=== PATIENT | male | born 1985 | race Caucasian/White ===

== ENCOUNTER → 2017-02-25 | Outpatient (CLI) | payer MEDICARE, MEDICAID ==
[~2017-02-25] MED LIST: AUGMENTIN200 MG/5 M PO; BIAXIN250 MG/51 PO; CLARITIN10 MG PO; KEFLEX500 MG PO; ZITHROMAX Z PA250 MG PO; Zithromax200 MG/5 M PO
[2017-02-25 13:25] LABS: BASO % 0.5 % (0.0-1.0); EOS # 0.1 10*3/uL (0.0-0.4); EOS % 0.8 % (1.0-4.0); HEMOGLOBIN 15.8 g/dl (14.0-18.0); LYMPH # 1.8 10*3/uL (1.3-4.4); LYMPH % 27.7 % (27.0-41.0); MEAN CELL VOLUME 85.2 fl (80.0-94.0); MEAN CORPUSCULAR HGB 29.3 pg (27.0-31.0); MEAN CORPUSCULAR HGB CONC 34.3 g/dl (33.0-37.0); MEAN PLATELET VOLUME 10.2 fl (9.6-12.3); MONO # 0.4 10*3/uL (0.1-1.0); MONO % 5.4 % (3.0-9.0); NEUT # 4.2 10*3/uL (2.3-7.9); NEUT % 65.4 % (47.0-73.0); PLATELET COUNT AUTOMATED 270 10*3/uL (130-400); RED CELL DISTRI WIDTH 12.5 % (0-14.5); WHITE BLOOD COUNT 6.4 10*3/uL (4.8-10.8)
[2017-02-25 13:58] LABS: ALBUMIN 4.7 gm/dl (3.1-4.5); ALKALINE PHOSPHATASE 99 U/L (45-117); BILIRUBIN, TOTAL 0.8 mg/dl (0.2-1.0); BUN 9 mg/dl (7-24); CARBON DIOXIDE 29 mmol/L (21-32); CHLORIDE 106 mmol/L (98-107); EST GLOM FILT AFRICAN AMERICAN > 60 ml/min; GLUCOSE 85 mg/dL (65-99); LDH 157 U/L (87-241); POTASSIUM 4.8 mmol/L (3.5-5.1); SGOT/AST 14 IU/L (3-35); SGPT/ALT 22 U/L (12-78); SODIUM 146 mmol/L (136-145); TOTAL PROTEIN 8.2 gm/dL (6.4-8.2)
[2017-02-25 14:17] LABS: BETA-HCG, TUMOR MARKER < 1.0 mIU/mL (<1)
== END | disposition home or self-care (01) ==
LOC: LAB 12:05 → US 12:30
PROVIDERS: Urology
DX: N43.3 Hydrocele, unspecified (principal); N50.3 Cyst of epididymis; N32.89 Other specified disorders of bladder

== ENCOUNTER 2017-09-17 16:48 | Emergency (ER) | payer OTHER, MEDICARE, MEDICAID ==
[~2017-09-17] VITALS: Ht 177.8 cm; Wt 49.9 kg
[2017-09-17 17:35] VITALS: BP 108/57
== END 2017-09-18 09:39 | disposition home or self-care (01) ==
LOC: ED 16:48
DX: S16.1XXA Strain of muscle, fascia and tendon at neck level, initial encounter (principal); Z88.1 Allergy status to other antibiotic agents; Z88.8 Allergy status to other drugs, medicaments and biological substances; Z91.018 Allergy to other foods; Z79.899 Other long term (current) drug therapy; V73.6XXA Passenger on bus injured in collision with car, pick-up truck or van in traffic accident, initial encounter; Y93.89 Activity, other specified; Y92.89 Other specified places as the place of occurrence of the external cause; Y99.8 Other external cause status

== ENCOUNTER → 2017-12-14 | Outpatient (CLI) | payer MEDICARE, MEDICAID ==
[2017-12-14 12:01] LABS: BASO % 0.2 % (0.0-1.0); EOS % 0.8 % (1.0-4.0); HEMOGLOBIN 16.1 g/dl (14.0-18.0); LYMPH # 1.6 10*3/uL (1.3-4.4); LYMPH % 31.9 % (27.0-41.0); MEAN CELL VOLUME 83.9 fl (80.0-94.0); MEAN CORPUSCULAR HGB 29.4 pg (27.0-31.0); MEAN PLATELET VOLUME 9.8 fl (9.6-12.3); MONO # 0.3 10*3/uL (0.1-1.0); MONO % 5.6 % (3.0-9.0); NEUT # 3.1 10*3/uL (2.3-7.9); NEUT % 61.3 % (47.0-73.0); PLATELET COUNT AUTOMATED 288 10*3/uL (130-400); RED BLOOD COUNT 5.48 10*6/uL (4.50-5.90); RED CELL DISTRI WIDTH 12.5 % (0-14.5)
[2017-12-14 12:20] LABS: ACT PARTIAL THROMBO TIME 26.7 SECONDS (20.8-31.5); INTERNATIONAL NORM RATIO 1.1 (2.0-3.5)
[2017-12-14 12:23] LABS: ALBUMIN 4.3 gm/dl (3.1-4.5); ALKALINE PHOSPHATASE 99 U/L (45-117); BUN 8 mg/dl (7-24); CHLORIDE 106 mmol/L (98-107); CREATININE 0.87 mg/dL (0.70-1.30); POTASSIUM 4.9 mmol/L (3.5-5.1); SGOT/AST 13 IU/L (3-35); SGPT/ALT 24 U/L (12-78); SODIUM 143 mmol/L (136-145); TOTAL PROTEIN 8.2 gm/dL (6.4-8.2)
== END | disposition home or self-care (01) ==
LOC: LAB 11:20
PROVIDERS: Nurse Practitioner Family
DX: Z00.8 Encounter for other general examination (principal); J06.9 Acute upper respiratory infection, unspecified

== ENCOUNTER → 2018-01-27 | Outpatient (CLI) | payer MEDICARE, MEDICAID ==
[2018-01-27 09:59] LABS: BASO % 0.5 % (0.0-1.0); EOS # 0.1 10*3/uL (0.0-0.4); EOS % 0.7 % (1.0-4.0); HEMATOCRIT 47.5 % (42.0-52.0); HEMOGLOBIN 16.3 g/dl (14.0-18.0); LYMPH % 22.2 % (27.0-41.0); MEAN CELL VOLUME 85.3 fl (80.0-94.0); MEAN CORPUSCULAR HGB 29.3 pg (27.0-31.0); MEAN CORPUSCULAR HGB CONC 34.3 g/dl (33.0-37.0); MEAN PLATELET VOLUME 9.7 fl (9.6-12.3); MONO # 0.5 10*3/uL (0.1-1.0); MONO % 5.1 % (3.0-9.0); NEUT # 6.3 10*3/uL (2.3-7.9); NEUT % 71.2 % (47.0-73.0); PLATELET COUNT AUTOMATED 366 10*3/uL (130-400); RED BLOOD COUNT 5.57 10*6/uL (4.50-5.90); RED CELL DISTRI WIDTH 12.5 % (0-14.5); WHITE BLOOD COUNT 8.8 10*3/uL (4.8-10.8)
[2018-01-27 10:20] LABS: ALBUMIN 4.5 gm/dl (3.1-4.5); ALKALINE PHOSPHATASE 113 U/L (45-117); BUN 8 mg/dl (7-24); CHLORIDE 104 mmol/L (98-107); CREATININE 0.77 mg/dL (0.70-1.30); POTASSIUM 4.8 mmol/L (3.5-5.1); SGOT/AST 15 IU/L (3-35); SGPT/ALT 22 U/L (12-78); SODIUM 140 mmol/L (136-145); TOTAL PROTEIN 8.1 gm/dL (6.4-8.2)
== END | disposition home or self-care (01) ==
LOC: LAB 09:36
PROVIDERS: Internal Medicine
DX: G80.0 Spastic quadriplegic cerebral palsy (principal); R13.12 Dysphagia, oropharyngeal phase

== ENCOUNTER → 2018-02-03 | Outpatient (CLI) | payer MEDICARE, MEDICAID ==
--- NOTE | ~2018-02-03 | SLPIE ---
[place], [place] SMART GRID ENGINEER INITIAL EVALUATION NAME: STELLA FUNG UNIT #: [id number] ROOM: DOCTOR: MICHAEL CASTELLANOS DO Speech Language Pathology Initial Evaluation Page 1 1 of Patient Name: STELLA FUNG Date: 02/03/2018 10:53 AM : 1985 SOC Date: 02/03/2018 [facility]: [facility] Provider #: [id number] Treating Clinician: MAR Robbins-SMART GRID ENGINEER Referring Physician: MICHAEL CASTELLANOS Patient Information Address: [address] [place] [address] Physician: MICHAEL CASTELLANOS Physician #: City, [facility], Zip: [place], [place] [address] Occupation: Unknown # of Approved Visits: 0 Gender: Male Medicaid #: [id number] [employer] Cutting Machine Operator: ERICKSON FUNG Medicare #: [id number] Rehabilitation Information / History Onset Date Code Description Primary Diagnosis: 02/03/2018 A0000 NO DIAGNOSIS SENT TO THE [facility] Subjective Comments: Initial evaluation created to initiate the electronic medical record. Please see [email or web address] for details. Rehabilitation Information / History Clinical Findings Functional Goals Functional Limitation Reporting Swallowing G8996 - Swallowing functional limitation, current status at therapy episode outset and at reporting intervals Current Status: CL - At least 60 percent but less than 80 percent impaired, limited or restricted G8997 - Swallowing functional limitation, projected goal status, at therapy episode outset, at reporting intervals, and at discharge or to end reporting Goal Status: CL - At least 60 percent but less than 80 percent impaired, limited or restricted G8998 - Swallowing functional limitation, discharge status, at discharge from therapy or to end reporting Discharge Status: CL - At least 60 percent but less than 80 percent impaired, limited or restricted 02/03/2018 10:54:45 AM MAR Robbins-SANDEEP Date/Time [place], [place] SMART GRID ENGINEER INITIAL EVALUATION NAME: STELLA FUNG UNIT #: [id number] ROOM: DOCTOR: MICHAEL CASTELLANOS DO [facility] License #: [id number] CM:SLPIE [id number] [facility]
--- NOTE | ~2018-02-03 | SLPPOC ---
[place], [place] LICENSED NUCLEAR OPERATOR PLAN OF CARE NAME: STELLA FUNG UNIT #: [id number] ROOM: DOCTOR: MICHAEL CASTELLANOS DO Speech Language Pathology Plan of Care Page 1 1 (Initial Evaluation) of Patient Name: STELLA FUNG Date: 02/03/2018 10:53 AM : 1985 SOC Date: 02/03/2018 Provider: [facility] Provider #: [id number] Treating Clinician: MAR Robbins-LICENSED NUCLEAR OPERATOR Referring Physician: MICHAEL CASTELLANOS Medicare #: [id number] Visits From SOC: Medicaid #: [id number] Onset Date Description Code Primary Diagnosis: 02/03/2018 A0000 NO DIAGNOSIS SENT TO THE [facility] Subjective Comments: Initial evaluation created to initiate the electronic medical record. Please see [employer] for details. Initial Level Goals Functional Limitation Reporting Swallowing G8996 - Swallowing functional limitation, current status at therapy episode outset and at reporting intervals Current Status: CL - At least 60 percent but less than 80 percent impaired, limited or restricted G8997 - Swallowing functional limitation, projected goal status, at therapy episode outset, at reporting intervals, and at discharge or to end reporting Goal Status: CL - At least 60 percent but less than 80 percent impaired, limited or restricted G8998 - Swallowing functional limitation, discharge status, at discharge from therapy or to end reporting Discharge Status: CL - At least 60 percent but less than 80 percent impaired, limited or restricted 02/03/2018 10:54:45 AM MICHAEL CASTELLANOS Date/Time CHANG Robbins Date I certify the need for these services furnished under this plan of treatment while under my care. State License #: [id number] CM:SLPPOC [id number] 1057 [facility] TH[facility]
--- NOTE | ~2018-02-03 | SLPPN ---
[place], [place] SADDLE STITCH OPERATOR PROGRESS NOTE NAME: STELLA FUNG UNIT #: [id number] ROOM: DOCTOR: MICHAEL CASTELLANOS DO Speech Language Pathology Treatment Note Page 1 1 of Patient Name: STELLA FUNG Date: 02/03/2018 10:54 AM : 1985 SOC Date: 02/03/2018 Provider: [facility] Provider #: [id number] Treating Clinician: MAR Robbins-SANDEEP Referring Physician: MICHAEL CASTELLANOS Onset Date Description Code Primary Diagnosis: 02/03/2018 A0000 NO DIAGNOSIS SENT TO THE [facility] Time In: 09:30 AM Time Out: 10:30 AM SADDLE STITCH OPERATOR Interventions and CPT Codes Consisted of: CPT Code Modifiers Minutes Units MOTION FLUOROSCOPY/SWALLOW 84200 60 1 Total Minutes: 60 Total Timed Minutes: 0 Total Untimed Minutes: 60 Total Units: 1 Total Timed Units: 0 Total Untimed Units: 1 02/03/2018 10:55:30 AM MAR Robbins-SANDEEP Date/Time State License #: [id number] CM:NICHOLAS 1057 1057 IS THERAPY [facility]
--- NOTE | ~2018-02-03 | PROC NOTE ---
[place], [place] PROCEDURE NOTE NAME: STELLA FUNG [facility] #: [id number] UNIT #: [id number] ROOM: DOCTOR: LUIS MIGUEL BRAXTONANN BIRTHDATE: [birth year] DOS: 02/03/2018 MODIFIED BARIUM SWALLOW ORDERING PHYSICIAN: Dr. Vogt. RADIOLOGIST: Dr. Brown. BACKGROUND INFORMATION: The patient, a 32-year-old male who was seen for modified barium swallow. This test was ordered to determine safety with diet. This patient currently receives a pureed diet and honey-thick liquids. This patient is diagnosed with cerebral palsy. The patient's mom provided case history information. She reported that he suffered from a recent mouth infection. She stated that he is currently back to premorbid level; however, during the infection, he was having some difficulty with swallowing. For the assessment, the patient was seated in a wheelchair. He was fed by his mother to improve cooperation. Oral peripheral examination revealed presence of several natural teeth. The patient presented in a consistent open mouth position. Lingual and labial skills were poor in strength, range of motion, and coordination. The patient was not able to volitionally cough or swallow. He was intelligible with simple yes/no responses only. METHODS AND MATERIALS USED FOR THE EXAM: The patient was positioned in the lateral plane. As previously mentioned, he was seated in his wheelchair. The patient had difficulty maintaining a neutral head position. This is typical of his positioning with meals. He was assessed with applesauce mixed with barium presented in half teaspoon amounts and honey-thick barium taken by cup. These were initially attempted by the clinician. However, due to limited cooperation, his mother was requested to feed him and this was helpful as he was more cooperative. ORAL PHASE: The patient was unable to maintain labial seal around cup or spoon, anterior loss was observed. Bolus formation and transit were poor. Material moved through his mouth by gravity. PHARYNGEAL PHASE: The patient's pharyngeal swallow was slow and weak in general. Hyolaryngeal elevation was weak. Residue occurred in the pharyngeal recesses post-swallow. This did eventually clear with subsequent swallows. No penetration or aspiration occurred during this study; however, this patient presents at high risk for aspiration due to his condition. ESOPHAGEAL PHASE: This phase of the swallow was not formally assessed during this exam. IMPRESSIONS AND RECOMMENDATIONS: Based upon assessment results, this 32-year-old patient presents with a severe oropharyngeal dysphagia. It is recommended that he remain on pureed diet with honey-thick liquids with use of safe swallow strategies such as upright positioning for meals, trying to maintain head in neutral position, small bites and sips and alternating food and honey thick liquids. Also, recommend the patient be monitored for signs and [place], [place] PROCEDURE NOTE NAME: STELLA FUNG UNIT #: [id number] ROOM: DOCTOR: GALINDO BRAXTON BIRTHDATE: [birth year] symptoms of aspiration. Results and recommendations were shared with his mom and a written copy was provided for education of caregivers as the patient attends a workshop daily and eats there as well. Mom verbalized understanding of information provided. Thank you very much for this referral. Should you have any questions regarding this patient, please contact the speech pathologist at [phone]. GLAINDO BRAXTON CM:PROCNOTE:PROCEDURE NOTE [id number] GALINDO BRAXTON
== END | disposition home or self-care (01) ==
LOC: RAD/SH 09:30
DX: R13.12 Dysphagia, oropharyngeal phase (principal)

== ENCOUNTER 2018-04-02 00:05 | Inpatient (IN) | payer MEDICARE, MEDICAID ==
[2018-04-02] VITALS (9 sets, daily range): BP systolic 135–171; BP diastolic 72–90
[~2018-04-02] VITALS: Ht 170.1 cm; Wt 44.1 kg
--- NOTE | ~2018-04-02 | PROC NOTE ---
[place], [place] PROCEDURE NOTE [id number] UNIT #: [id number] ROOM: 421 DOCTOR: LUIS MIGUEL LARA BIRTHDATE: [birth year] DOS: REFERRING PHYSICIAN: Dr. Chan. RADIOLOGIST: Dr. Hang Drake. HISTORY OF PRESENT ILLNESS: The patient is a 33-year-old male admitted to [facility] with increased sputum production. The patient diagnosed with pneumonia and sepsis. Significant previous medical history includes cerebral palsy and asthma. The patient also recently underwent dental surgery. The patient is previously known to DRESSING MACHINE OPERATOR service. An MBSS was completed on 02/03/2018. Pureed and honey thickened liquids were recommended following. GENERAL COMMENTS: Patient was accompanied by his mother who provided all background information. She reported that he was tolerating a pureed diet with honey thickened liquids prior to admission. She noted that she occasionally provides him with nectar thickened liquids and even thin liquids sparingly. She denied recent coughing/choking with any consistency. She reported occasional nasal regurgitation if the patient eats/drinks too quickly (approximately once per month). MODIFIED BARIUM SWALLOW METHODS: The patient was positioned upright in his wheelchair during the exam. The patient's mother fed him throughout. This exam was viewed in the lateral plane. The patient tolerated the following barium impregnated consistencies, teaspoons of pureed x3, teaspoons of honey thickened liquids x3 and teaspoon of nectar thickened liquid x1. ORAL PHASE: The patient with no lip closure resulting in mild to moderate amounts of anterior loss. The patient did not manipulate bolus in oral cavity rather all boluses fell passively to the pharynx. Moderate oral residue noted which reduced anteriorly and posteriorly post-swallow. PHARYNGEAL PHASE: Initiation of the swallow response was moderately delayed with contrast reaching the vallecula before initiation of the swallow. Bolus driving pressure was reduced due to lack of oral propulsion and reduced pharyngeal constriction. HLE was reduced; however, epiglottic closure was adequate for airway protection. No penetration or aspiration was observed with any consistency. Base of tongue to posterior pharyngeal wall contact was severely reduced with moderate to severe amounts of residue maintained in the vallecula and piriform sinuses. Patient independently swallowed multiple times (4-5 per bite/sip). This reduced pharyngeal residue significantly. Findings were consistent across pureed honey and nectar thickened liquids. UES: Unremarkable. IMPRESSION: The patient presents with severe oropharyngeal dysphagia consistent with findings of previous MBS (02/03/2018); however, the patient maintained adequate airway protection for pureed honey thickened liquids and nectar thickened liquids with no penetration/aspiration occurring. Therefore, he is appropriate for diet of puree and nectar thickened liquids. The patient is at [place], [place] PROCEDURE NOTE NAME: STELLA FUNG UNIT #: [id number] ROOM: 421 DOCTOR: LUIS MIGEUL LARA BIRTHDATE: [birth year] high risk for aspiration given his dysphagia and cerebral palsy. However, his mother is very capable in feeding him and strictly adheres to safe swallowing strategies. RECOMMENDATIONS: 1. Initiate pureed diet with nectar thickened liquids. If patient is showing signs or symptoms of difficulty with nectar, moved to honey-thickened liquids. 2. Aspiration precautions, fully upright with head forward for all p.o. All bites/sips fed via teaspoon, very slow rate of feeding, small bites/sips, alternate bites of puree and thickened liquid; oral care prior to p.o. PLAN OF CARE: DRESSING MACHINE OPERATOR service will follow the patient inhouse to ensure tolerance to recommended diet. Findings and recommendations were discussed with the patient's mother and RN. Thank you for consulting. Please contact the DRESSING MACHINE OPERATOR Department at [phone] with any questions/concerns. Luis Miguel Hurst CM:PROCNOTE:PROCEDURE NOTE [id number] LUIS MIGUEL LARA
--- NOTE | ~2018-04-02 | PR ---
[place], [place] PROGRESS NOTE NAME: STELLA FUNG [facility] #: [id number] UNIT #: [id number] ROOM: 421 DOCTOR: ALLYSSA STRAUSS MD,LAMBERTO BIRTHDATE: [birth year] DOS: 04/04/2018 PULMONARY PROGRESS NOTE SUBJECTIVE: The patient has been noted comfortable, resting on the chair this morning, underwent modified barium swallow, completed. The patient noted nonverbal with history of cerebral palsy. The mom was present with the patient. PHYSICAL EXAMINATION: VITAL SIGNS: Vital signs of the patient normal temperature, respiratory rate of 18-20, heart rate 82, and blood pressure 138/80. Pulse oxygen saturation of the patient recorded on room air 98% saturation. HEENT: On examination, no new change. CARDIOVASCULAR: S1, S2 audible. LUNGS: Without any wheezing or crackles. ABDOMEN: Soft and nontender. EXTREMITIES: Without any acute edema. Chronic changes noted. Contracture with history of cerebral palsy. IMPRESSION: 1. Acute aspiration pneumonia, which has been treated with the antibiotics. The patient seems to be responding to treatment. 2. History of cerebral palsy. PLAN OF MANAGEMENT: The patient could be considered from discharge today on oral antibiotics. Monitor results of the modified barium swallow study to make any adjustment in the dietary restrictions. In the meantime, continue other supportive therapy, plan of management, and care plan. LAMBERTO SPIVEY MD CM:PNTRANS [id number] LAMBERTO STRAUSS MD 04/05/18 0027 interface
--- NOTE | ~2018-04-02 | CON ---
[place], [place] REPORT OF CONSULTATION NAME: STELLA FUNG [facility] #: [id number] UNIT #: [id number] ROOM: 421 DOCTOR: ALLYSSA STRAUSS MD,LAMBERTO BIRTHDATE: [birth year] DOS: 04/03/2018 PULMONARY CONSULTATION, EVALUATION AND MANAGEMENT CONSULTATION REQUESTED BY: Hospitalist. REASON FOR CONSULTATION: To assess the patient for acute pneumonia. The history could not be obtained from the patient because of history of cerebral palsy. All the history given to me by the mother of this patient's present at bedside. HISTORY OF PRESENT ILLNESS: This is a 33-year-old the patient with history of cerebral palsy since . He was taken care of at home by the mother. The patient has been noted with symptoms of chest congestion, coughing with thick green sputum expectoration at time. Symptoms have been noted worsened in the past couple of weeks. He has been given bronchodilators and the Claritin without any relief of symptoms. The patient was noted with increased shortness of breath, diaphoresis as well as his toes were turning purple per mother. He was brought to the hospital for further assessment. The patient had a chest x-ray done and subsequently, CT scan of the chest was done, which were described as possibility of acute infection, leukocytosis was also noted. At this time of assessment, the patient has been noted comfortable at this time without any acute distress. The patient does not have any visual connection does not follow vocal commands. REVIEW OF SYSTEMS: Could not be completed because of the patient's inability to provide me history because of current cerebral palsy. PAST MEDICAL HISTORY: 1. Noted with a history of recurrent recent infection involving the teeth and the bone in the jaw, they were removed in moderate size and ____. 2. Longstanding cerebral palsy. 3. Diagnosis of bronchial asthma. 4. 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 The patient remained on mechanical ventilator per mother upon for a few weeks. PAST SURGICAL HISTORY: The patient reported as surgery of the eye and the right hip. Partial teeth extraction and lower jaw. SOCIAL HISTORY: The patient stays at home. There was no history of alcohol use, illicit drug use. Tobacco use reported. FAMILY HISTORY: Father is living, a 55-year-old with history of hypertension, hyperlipidemia, diabetes, and coronary artery disease. Mother is living 52-year-old with history of hyperlipidemia and essential hypertension. HOME MEDICATIONS: Noted. Claritin and use of the breathing treatment, most likely DuoNeb q.i.d. [place], [place] REPORT OF CONSULTATION NAME: STELLA FUNG UNIT #: [id number] ROOM: [facility] DOCTOR: LAMBERTO GONZÁLES MD BIRTHDATE: [birth year] DRUG ALLERGIES: REPORTED : 1. AUGMENTIN. 2. LEVAQUIN. PHYSICAL EXAMINATION: GENERAL: This is 33-year-old male, who has been noted currently awake and alert without any distress. Height was recorded as 5 feet 7 inches, weight of 97 pounds, BMI 15. VITAL SIGNS: Temperature noted at 102 degrees Fahrenheit on admission and currently noted afebrile in the last 12 hours, respiratory rate range between 18-24, heart rate 94-101, blood pressure 146/76-141/81. Pulse oxygen saturation on room air was 98% saturation. HEENT: Examination shows head was atraumatic, high-arched palate. Oral mucosa was noted as mildly dry, but there were no lesions or rashes visible. NECK: Supple. CARDIOVASCULAR: S1, S2 is audible. LUNGS: The patient was noted without any wheezing or crackles at this time of assessment. ABDOMEN: Soft. Bowel sounds present. EXTREMITIES: Cerebral palsy. Contracture at the level of the wrist and in the lower legs. SKIN: Visible skin no lesions or rashes. CENTRAL NERVOUS SYSTEM: Cerebral palsy findings were noted. LABORATORY DATA: On admission, lactic acid 7.9. Follow up 2.0. PT/PTT noted as normal. CMP on 04/02/2018, glucose 152. Sodium 148, potassium 5.6, chloride 110. CMP on 04/02/2018, noted glucose 125, BUN and creatinine were normal, remaining CMP grossly normal. CBC repeated on admission, WBC count 22.8, hemoglobin and hematocrit normal, platelet count normal, 95% segmented neutrophils. CBC on 04/03/2018, hemoglobin 13.8, WBC count were completely normal. The platelets were noted normal. CMP this morning, BUN normal, creatinine was normal. Remaining CMP normal. ESR was 9.0. Review of the radiology data, the chest x-ray that was done, 1 view does not show any acute abnormality on 04/02/2018. CT scan of the abdomen and pelvis was completed in the Emergency Room on 04/02/2018, radicular nodular density was reported in the lower portion of the thorax images that were completed of the right lower lobe with ____. CT scan of the maxillofacial sinus without contrast was done without any acute abnormality. CT scan of chest that was done on 04/02/2018 was reviewed personally and independently. Mediastinal windows does not show any acute abnormalities. The lung parenchymal window reviewed shows clear left lung. There were no pulmonary abnormalities. History of ground-glass opacity noted in the right upper lobe, right middle lobe as well as a right lower lobe. The patient noted significant motion artifact, infiltration and ground-glass opacity noted much more pronounced in the right lower lung, than the remaining portion of the right lung. IMPRESSION: The patient who has been admitted to the hospital with: 1. Acute sepsis related to current acute pneumonia very likely, possibility of [place], [place] REPORT OF CONSULTATION [id number] #: [id number] ROOM: 421 DOCTOR: LAMBERTO GONZÁLES MD BIRTHDATE: [birth year] aspiration pneumonia could be considered. 2. History of longstanding cerebral palsy as well. PLAN OF MANAGEMENT: Great precaution of this would be done for any aspiration. The patient with oral food intake. Continuation of current antibiotic. The patient seemed responding to treatment for the community-acquired infection aspiration with gram-positive organisms such as streptococcal pneumonia. Followed the temperature elevation, leukocytosis, and further response to current treatment, consider modified barium swallow study as well to modify the diet if necessary further in for future use to prevent the aspirations. Usual care, other supportive plan of management and care plan. Additional treatment changes will be made based on the progression of the illness. Assessment and management has been discussed with the patient and mother. LAMBERTO SPIVEY MD CM:CONSTR:REPORT OF CONSULTATION 1609 04/04/18 0046 interface
[2018-04-02 00:46] LABS: HEMATOCRIT 46.5 % (42.0-52.0); MEAN CELL VOLUME 85.6 fl (80.0-94.0); MEAN CORPUSCULAR HGB 29.5 pg (27.0-31.0); MEAN CORPUSCULAR HGB CONC 34.4 g/dl (33.0-37.0); MEAN PLATELET VOLUME 9.8 fl (9.6-12.3); PLATELET COUNT AUTOMATED 353 10*3/uL (130-400); RED BLOOD COUNT 5.43 10*6/uL (4.50-5.90); RED CELL DISTRI WIDTH 12.5 % (0-14.5); WHITE BLOOD COUNT 20.5 10*3/uL (4.8-10.8)
[2018-04-02 00:57] LABS: ACT PARTIAL THROMBO TIME 24.7 SECONDS (20.8-31.5); INTERNATIONAL NORM RATIO 1.1 (2.0-3.5)
[2018-04-02 01:01] LABS: ALBUMIN 4.7 gm/dl (3.1-4.5); ALKALINE PHOSPHATASE 107 U/L (45-117); BUN 14 mg/dl (7-24); CHLORIDE 110 mmol/L (98-107); CREATININE 1.13 mg/dL (0.70-1.30); LIPASE 59 U/L (73-393); POTASSIUM 5.6 mmol/L (3.5-5.1); SGOT/AST 21 IU/L (3-35); SGPT/ALT 29 U/L (12-78); SODIUM 148 mmol/L (136-145); TOTAL PROTEIN 8.2 gm/dL (6.4-8.2)
[2018-04-02 01:02] LABS: TROPONIN I < 0.015 ng/ml (<0.045)
[2018-04-02 01:09] LABS: PLATELET SUFFICIENCY NORMAL (NORMAL); TOTAL CELLS COUNTED 100 #CELLS
[2018-04-02 02:27] LABS: BILIRUBIN NEGATIVE (NEGATIVE); BLOOD NEGATIVE (NEGATIVE); CLARITY CLEAR (CLEAR); COLOR YELLOW (YELLOW); GLUCOSE TRACE (NEGATIVE); KETONE 1+ (NEGATIVE); LEUKO ESTERASE NEGATIVE (NEGATIVE); NITRITE NEGATIVE (NEGATIVE); UROBILINOGEN 0.2 E.U./dl (0.2-1.0)
[2018-04-02 03:43] LABS: HYALINE CAST 20-25
[2018-04-02 06:13] LABS: HEMATOCRIT 44.5 % (42.0-52.0); HEMOGLOBIN 15.1 g/dl (14.0-18.0); MEAN CELL VOLUME 84.6 fl (80.0-94.0); MEAN CORPUSCULAR HGB 28.7 pg (27.0-31.0); MEAN CORPUSCULAR HGB CONC 33.9 g/dl (33.0-37.0); MEAN PLATELET VOLUME 9.8 fl (9.6-12.3); PLATELET COUNT AUTOMATED 285 10*3/uL (130-400); RED BLOOD COUNT 5.26 10*6/uL (4.50-5.90); RED CELL DISTRI WIDTH 12.6 % (0-14.5); WHITE BLOOD COUNT 22.8 10*3/uL (4.8-10.8)
[2018-04-02 06:27] LABS: ALBUMIN 4.2 gm/dl (3.1-4.5); ALKALINE PHOSPHATASE 97 U/L (45-117); BUN 9 mg/dl (7-24); CHLORIDE 108 mmol/L (98-107); CHOLESTEROL 126 mg/dL (<200); CREATININE 0.77 mg/dL (0.70-1.30); HDL CHOLESTEROL 53 mg/dl (40-60); LDL CHOLESTEROL 66 mg/dL (9-159); PHOSPHOROUS 1.9 mg/dL (2.5-4.9); SGOT/AST 24 IU/L (3-35); SGPT/ALT 26 U/L (12-78); TOTAL PROTEIN 7.5 gm/dL (6.4-8.2); TRIGLYCERIDES 34 mg/dl (<150); VLDL CHOLESTEROL 7 mg/dL (6-40)
[2018-04-02 06:28] LABS: FREE T4 1.09 ng/dl (0.76-1.46)
[2018-04-02 06:34] LABS: SODIUM 143 mmol/L (136-145)
[2018-04-02 06:48] LABS: ATYPICAL LYMPHS 2 % (0-0); PLATELET SUFFICIENCY NORMAL (NORMAL); TOTAL CELLS COUNTED 100 #CELLS
[2018-04-02 07:53] LABS: VITAMIN D, 25-HYDROXY 10.3 ng/mL (30-100)
[2018-04-03] VITALS: BP 158/86
[2018-04-03 07:34] LABS: BASO % 0.2 % (0.0-1.0); EOS % 0.2 % (1.0-4.0); HEMOGLOBIN 13.8 g/dl (14.0-18.0); LYMPH # 1.3 10*3/uL (1.3-4.4); LYMPH % 14.8 % (27.0-41.0); MEAN CORPUSCULAR HGB 28.9 pg (27.0-31.0); MEAN CORPUSCULAR HGB CONC 33.7 g/dl (33.0-37.0); MEAN PLATELET VOLUME 10.1 fl (9.6-12.3); MONO # 0.5 10*3/uL (0.1-1.0); MONO % 5.2 % (3.0-9.0); NEUT # 7.1 10*3/uL (2.3-7.9); NEUT % 79.4 % (47.0-73.0); PLATELET COUNT AUTOMATED 212 10*3/uL (130-400); RED BLOOD COUNT 4.77 10*6/uL (4.50-5.90); RED CELL DISTRI WIDTH 12.7 % (0-14.5); WHITE BLOOD COUNT 8.9 10*3/uL (4.8-10.8)
[2018-04-03 07:37] LABS: ALBUMIN 3.5 gm/dl (3.1-4.5); ALKALINE PHOSPHATASE 78 U/L (45-117); BUN 5 mg/dl (7-24); CHLORIDE 111 mmol/L (98-107); CREATININE 0.64 mg/dL (0.70-1.30); PHOSPHOROUS 2.9 mg/dL (2.5-4.9); SGOT/AST 29 IU/L (3-35); SGPT/ALT 29 U/L (12-78); SODIUM 144 mmol/L (136-145); TOTAL PROTEIN 6.6 gm/dL (6.4-8.2)
[2018-04-03 08:00] VITALS: BP 155/71
[2018-04-03 12:00] VITALS: BP 141/81
[2018-04-03 16:00] VITALS: BP 144/87
[2018-04-03 20:00] VITALS: BP 154/92
[2018-04-04 00:09] VITALS: BP 145/82
[2018-04-04 06:41] LABS: BASO % 0.3 % (0.0-1.0); EOS # 0.1 10*3/uL (0.0-0.4); HEMOGLOBIN 13.5 g/dl (14.0-18.0); LYMPH # 1.7 10*3/uL (1.3-4.4); LYMPH % 27.7 % (27.0-41.0); MEAN CELL VOLUME 85.3 fl (80.0-94.0); MEAN CORPUSCULAR HGB 28.8 pg (27.0-31.0); MEAN CORPUSCULAR HGB CONC 33.8 g/dl (33.0-37.0); MEAN PLATELET VOLUME 10.1 fl (9.6-12.3); MONO # 0.4 10*3/uL (0.1-1.0); MONO % 6.1 % (3.0-9.0); NEUT % 64.6 % (47.0-73.0); PLATELET COUNT AUTOMATED 254 10*3/uL (130-400); RED BLOOD COUNT 4.69 10*6/uL (4.50-5.90); RED CELL DISTRI WIDTH 12.7 % (0-14.5); WHITE BLOOD COUNT 6.3 10*3/uL (4.8-10.8)
[2018-04-04 07:05] LABS: BUN 7 mg/dl (7-24); CHLORIDE 108 mmol/L (98-107); CREATININE 0.59 mg/dL (0.70-1.30); POTASSIUM 3.7 mmol/L (3.5-5.1); SODIUM 144 mmol/L (136-145)
[2018-04-04 08:00] VITALS: BP 138/80
[2018-04-04] MEDS ORDERED: DOXYCYCLINE100 M3 PO (12:48)
== END 2018-04-04 13:24 | disposition home or self-care (01) | DRG 871 ==
LOC: ED 00:05 → EDHOLD 02:21 → 4E 02:21
PROVIDERS: Internal Medicine; Nurse Practitioner Family
PROC: BD1BYZZ Fluoroscopy of Mouth/Oropharynx using Other Contrast (ICD-10-PCS; principal; 2018-04-04)
DX: A41.9 Sepsis, unspecified organism (principal); J69.0 Pneumonitis due to inhalation of food and vomit; E87.0 Hyperosmolality and hypernatremia; E87.5 Hyperkalemia; R17 Unspecified jaundice; Z68.1 Body mass index [BMI] 19.9 or less, adult; J45.909 Unspecified asthma, uncomplicated; R65.20 Severe sepsis without septic shock; R73.9 Hyperglycemia, unspecified; K59.00 Constipation, unspecified; Z88.1 Allergy status to other antibiotic agents; Z91.018 Allergy to other foods; Z82.49 Family history of ischemic heart disease and other diseases of the circulatory system; Z80.9 Family history of malignant neoplasm, unspecified; Z83.3 Family history of diabetes mellitus; Z79.899 Other long term (current) drug therapy

== ENCOUNTER 2018-07-22 11:31 | Emergency (ER) | payer MEDICARE, MEDICAID ==
[~2018-07-22] VITALS: Wt 47.6 kg
[~2018-07-22 11:31] MED LIST changes: +DOXYCYCLINE100 M3 PO
[2018-07-22 11:36] VITALS: BP 146/96
[2018-07-22 12:23] LABS: BASO % 0.3 % (0.0-1.0); HEMATOCRIT 45.4 % (42.0-52.0); HEMOGLOBIN 15.7 g/dl (14.0-18.0); LYMPH # 1.1 10*3/uL (1.3-4.4); LYMPH % 13.4 % (27.0-41.0); MEAN CORPUSCULAR HGB 29.4 pg (27.0-31.0); MEAN CORPUSCULAR HGB CONC 34.6 g/dl (33.0-37.0); MEAN PLATELET VOLUME 9.9 fl (9.6-12.3); MONO # 0.5 10*3/uL (0.1-1.0); MONO % 5.6 % (3.0-9.0); NEUT # 6.4 10*3/uL (2.3-7.9); NEUT % 80.6 % (47.0-73.0); PLATELET COUNT AUTOMATED 252 10*3/uL (130-400); RED BLOOD COUNT 5.34 10*6/uL (4.50-5.90); RED CELL DISTRI WIDTH 12.4 % (0-14.5)
[2018-07-22 12:43] LABS: ALBUMIN 4.3 gm/dl (3.1-4.5); ALKALINE PHOSPHATASE 90 U/L (45-117); BUN 7 mg/dl (7-24); CHLORIDE 107 mmol/L (98-107); CREATININE 0.72 mg/dL (0.70-1.30); POTASSIUM 4.3 mmol/L (3.5-5.1); SGOT/AST 15 IU/L (3-35); SGPT/ALT 29 U/L (12-78); SODIUM 143 mmol/L (136-145); TOTAL PROTEIN 8.3 gm/dL (6.4-8.2)
[2018-07-22 13:55] LABS: BILIRUBIN NEGATIVE (NEGATIVE); BLOOD NEGATIVE (NEGATIVE); CLARITY CLEAR (CLEAR); COLOR YELLOW (YELLOW); GLUCOSE NEGATIVE (NEGATIVE); KETONE NEGATIVE (NEGATIVE); LEUKO ESTERASE NEGATIVE (NEGATIVE); NITRITE NEGATIVE (NEGATIVE); PH 8.5 (5.0-9.0); SPECIFIC GRAVITY 1.015 (1.005-1.030); UROBILINOGEN 0.2 E.U./dl (0.2-1.0)
[2018-07-22 14:09] LABS: BACTERIA 2+; EPITHELIAL CELLS 0-2; RBC 0-2 rbc/hpf (0-2); WBC 0-2 wbc/hpf (0-5)
[2018-07-22] MEDS ORDERED: ZITHROMAX200 MG/51 PO (14:27)
== END 2018-07-22 14:40 | disposition home or self-care (01) ==
LOC: ED 11:31
PROVIDERS: Nurse Practitioner Family
DX: J06.9 Acute upper respiratory infection, unspecified (principal); J20.9 Acute bronchitis, unspecified; Z88.1 Allergy status to other antibiotic agents; Z91.018 Allergy to other foods; Z79.899 Other long term (current) drug therapy; Z98.890 Other specified postprocedural states

== ENCOUNTER 2018-12-08 16:18 | Emergency (ER) | payer MEDICARE, MEDICAID ==
[~2018-12-08] VITALS: Wt 44.9 kg
[~2018-12-08 16:18] MED LIST changes: +ZITHROMAX200 MG/51 PO
[2018-12-08 17:13] VITALS: BP 162/82
[2018-12-08 17:34] LABS: BASO % 0.3 % (0.0-1.0); HEMATOCRIT 47.8 % (42.0-52.0); HEMOGLOBIN 16.8 g/dl (14.0-18.0); LYMPH # 1.2 10*3/uL (1.3-4.4); LYMPH % 8.4 % (27.0-41.0); MEAN CELL VOLUME 84.6 fl (80.0-94.0); MEAN CORPUSCULAR HGB 29.7 pg (27.0-31.0); MEAN CORPUSCULAR HGB CONC 35.1 g/dl (33.0-37.0); MEAN PLATELET VOLUME 9.6 fl (9.6-12.3); MONO # 0.6 10*3/uL (0.1-1.0); MONO % 4.2 % (3.0-9.0); NEUT # 12.3 10*3/uL (2.3-7.9); NEUT % 86.7 % (47.0-73.0); PLATELET COUNT AUTOMATED 363 10*3/uL (130-400); RED BLOOD COUNT 5.65 10*6/uL (4.50-5.90); RED CELL DISTRI WIDTH 12.9 % (0-14.5); WHITE BLOOD COUNT 14.2 10*3/uL (4.8-10.8)
[2018-12-08 17:47] LABS: BILIRUBIN NEGATIVE (NEGATIVE); BLOOD NEGATIVE (NEGATIVE); CLARITY CLEAR (CLEAR); COLOR YELLOW (YELLOW); GLUCOSE NEGATIVE (NEGATIVE); KETONE TRACE (NEGATIVE); LEUKO ESTERASE NEGATIVE (NEGATIVE); NITRITE NEGATIVE (NEGATIVE); SPECIFIC GRAVITY 1.025 (1.005-1.030); UROBILINOGEN 0.2 E.U./dl (0.2-1.0)
[2018-12-08 17:49] LABS: ALBUMIN 4.7 gm/dl (3.1-4.5); ALKALINE PHOSPHATASE 105 U/L (45-117); BUN 8 mg/dl (7-24); CHLORIDE 109 mmol/L (98-107); CREATININE 0.95 mg/dL (0.70-1.30); LIPASE 76 U/L (73-393); POTASSIUM 4.1 mmol/L (3.5-5.1); SGOT/AST 18 IU/L (3-35); SGPT/ALT 26 U/L (12-78); SODIUM 144 mmol/L (136-145); TOTAL PROTEIN 8.9 gm/dL (6.4-8.2)
[2018-12-08 18:02] LABS: MUCOUS 1+; RBC 0-2 rbc/hpf (0-2)
== END 2018-12-08 20:39 | disposition home or self-care (01) ==
LOC: ED 16:18
PROVIDERS: Nurse Practitioner Family
DX: B27.90 Infectious mononucleosis, unspecified without complication (principal); R13.10 Dysphagia, unspecified; R05 Cough; Z88.1 Allergy status to other antibiotic agents; Z91.018 Allergy to other foods; Z79.899 Other long term (current) drug therapy

== ENCOUNTER 2019-11-11 17:33 | Emergency (ER) | payer MEDICARE, MEDICAID ==
[~2019-11-11] VITALS: Wt 45.4 kg
[2019-11-11 20:18] LABS: BILIRUBIN NEGATIVE (NEGATIVE); BLOOD NEGATIVE (NEGATIVE); CLARITY SL CLOUDY (CLEAR); COLOR YELLOW (YELLOW); GLUCOSE NEGATIVE (NEGATIVE); KETONE NEGATIVE (NEGATIVE); LEUKO ESTERASE NEGATIVE (NEGATIVE); NITRITE NEGATIVE (NEGATIVE); SPECIFIC GRAVITY >= 1.030 (1.005-1.030); UROBILINOGEN 0.2 E.U./dl (0.2-1.0)
[2019-11-11 20:47] LABS: EPITHELIAL CELLS 0-2; MUCOUS 1+
== END 2019-11-11 21:27 | disposition home or self-care (01) ==
LOC: ED 17:33
PROVIDERS: Physician Assistant
DX: R30.0 Dysuria (principal); J45.909 Unspecified asthma, uncomplicated; Z88.1 Allergy status to other antibiotic agents; Z91.018 Allergy to other foods; Z79.2 Long term (current) use of antibiotics; Z79.899 Other long term (current) drug therapy

== ENCOUNTER → 2019-12-19 | Outpatient (CLI) | payer MEDICARE, MEDICAID ==
[2019-12-19 10:17] LABS: ALBUMIN 4.7 gm/dl (3.1-4.5); ALKALINE PHOSPHATASE 102 U/L (45-117); BUN 10 mg/dl (7-24); CHLORIDE 112 mmol/L (98-107); CHOLESTEROL 128 mg/dL (<200); CREATININE 0.98 mg/dL (0.70-1.30); SGOT/AST 22 IU/L (3-35); SGPT/ALT 27 U/L (12-78); SODIUM 143 mmol/L (136-145); TOTAL PROTEIN 8.5 gm/dL (6.4-8.2); TRIGLYCERIDES 66 mg/dl (<150); VLDL CHOLESTEROL 13 mg/dL (6-40)
[2019-12-19 10:21] LABS: HDL CHOLESTEROL 56 mg/dl (40-60); LDL CHOLESTEROL 59 mg/dL (9-159)
[2019-12-19 10:22] LABS: POTASSIUM 5.6 mmol/L (3.5-5.1)
== END | disposition home or self-care (01) ==
LOC: LAB 09:14
PROVIDERS: Internal Medicine
DX: I10 Essential (primary) hypertension (principal); Z82.49 Family history of ischemic heart disease and other diseases of the circulatory system

== ENCOUNTER → 2019-12-26 | Outpatient (CLI) | payer MEDICARE, MEDICAID ==
[2019-12-26 16:13] LABS: BUN 9 mg/dl (7-24); CHLORIDE 107 mmol/L (98-107); CREATININE 0.97 mg/dL (0.70-1.30); POTASSIUM 4.9 mmol/L (3.5-5.1); SODIUM 143 mmol/L (136-145)
== END | disposition home or self-care (01) ==
LOC: LAB 15:08
PROVIDERS: Internal Medicine
DX: E78.5 Hyperlipidemia, unspecified (principal)

== ENCOUNTER → 2023-03-08 | Outpatient (CLI) | payer MEDICARE, MEDICAID ==
[2023-03-08 11:43] LABS: BASO % 0.5 % (0.0-1.0); EOS # 0.1 10*3/uL (0.0-0.4); EOS % 1.3 % (1.0-4.0); HEMATOCRIT 48.4 % (42.0-52.0); LYMPH # 2.1 10*3/uL (1.3-4.4); LYMPH % 38.6 % (27.0-41.0); MEAN CELL VOLUME 85.7 fl (80.0-94.0); MEAN CORPUSCULAR HGB 29.2 pg (27.0-31.0); MEAN CORPUSCULAR HGB CONC 34.1 g/dl (33.0-37.0); MONO # 0.3 10*3/uL (0.1-1.0); MONO % 5.6 % (3.0-9.0); NEUT % 53.8 % (47.0-73.0); PLATELET COUNT AUTOMATED 287 10*3/uL (130-400); RED BLOOD COUNT 5.65 10*6/uL (4.50-5.90); RED CELL DISTRI WIDTH 12.3 % (0-14.5); WHITE BLOOD COUNT 5.6 10*3/uL (4.8-10.8)
[2023-03-08 12:25] LABS: ALKALINE PHOSPHATASE 85 U/L (46-116); BUN 6 mg/dl (9-23); CHLORIDE 105 mmol/L (98-107); CHOLESTEROL 136 mg/dL (<200); LDL CHOLESTEROL 68 mg/dL (9-159); POTASSIUM 4.2 mmol/L (3.4-5.1); SGPT/ALT 17 U/L (10-49); THYROID STIM HORMONE (HS) 3.561 uIU/ml (0.550-4.780); TOTAL PROTEIN 7.7 gm/dL (6.0-8.0); TRIGLYCERIDES 123 mg/dl (<150)
== END | disposition home or self-care (01) ==
LOC: LAB 11:00
PROVIDERS: ATTEND Internal Medicine Nephrology
DX: R21 Rash and other nonspecific skin eruption (principal); I10 Essential (primary) hypertension; E55.9 Vitamin D deficiency, unspecified

== ENCOUNTER → 2023-09-20 | Outpatient (CLI) | payer MEDICARE, MEDICAID | END | disposition home or self-care (01) | LOC: US 08:30 | PROVIDERS: ATTEND Internal Medicine Nephrology | DX: N28.1 Cyst of kidney, acquired (principal); N30.00 Acute cystitis without hematuria; R10.9 Unspecified abdominal pain ==